=== PATIENT | female | born 1950 | race Caucasian/White ===

== ENCOUNTER → 2016-09-07 | Outpatient (CLI) | payer BC ==
[~2016-09-07] MED LIST: ANTIVERT 25MG25 MG PO; AUGMENTIN 250 M1 TAB PO; LIPITOR 10MG10 MG PO; LORTAB 5/500 501 TAB PO; NO HOME MEDICATIONS; PRILOSEC 20MG20 MG PO; TYLENOL W/COD1 UDTAB PO; ZOLOFT 100MG100 MG PO
== END ==
LOC: COL.RAD 09:34
DX: E04.1 Nontoxic single thyroid nodule (principal)

== ENCOUNTER → 2017-01-09 | Outpatient (CLI) | payer BC | LOC: MC.RAD 13:18 | DX: Z12.31 Encounter for screening mammogram for malignant neoplasm of breast (principal); R92.8 Other abnormal and inconclusive findings on diagnostic imaging of breast ==

== ENCOUNTER → 2017-01-16 | Outpatient (CLI) | payer BC | LOC: MC.RAD 08:00 | DX: N60.02 Solitary cyst of left breast (principal); N63.21 Unspecified lump in the left breast, upper outer quadrant ==

== ENCOUNTER → 2017-07-24 | Outpatient (CLI) | payer BC | LOC: MC.RAD 13:52 | DX: N63.20 Unspecified lump in the left breast, unspecified quadrant (principal) ==

== ENCOUNTER → 2018-02-15 | Outpatient (CLI) | payer MEDICARE, BC | LOC: MC.RAD 07:28 | DX: R92.8 Other abnormal and inconclusive findings on diagnostic imaging of breast (principal) | CPT/HCPCS: G0279 ==

== ENCOUNTER → 2018-09-09 | Outpatient (CLI) | payer MEDICARE, BC | LOC: MC.RAD 08:24 | DX: R92.8 Other abnormal and inconclusive findings on diagnostic imaging of breast (principal) | CPT/HCPCS: G0279 ==

== ENCOUNTER → 2020-04-23 | Outpatient (CLI) | payer MEDICARE, BC | LOC: MC.RAD 11:04 | DX: Z12.31 Encounter for screening mammogram for malignant neoplasm of breast (principal) ==

== ENCOUNTER → 2021-06-09 | Outpatient (CLI) | payer MEDICARE, BC | LOC: MC.RAD 08:10 | DX: Z12.31 Encounter for screening mammogram for malignant neoplasm of breast (principal) ==

== ENCOUNTER → 2021-10-21 | Outpatient (CLI) | payer MEDICARE, BC | LOC: COL.RAD 12:18 | DX: K57.30 Diverticulosis of large intestine without perforation or abscess without bleeding (principal); M43.17 Spondylolisthesis, lumbosacral region ==